=== PATIENT | male | born 1980 | race Caucasian/White ===

== ENCOUNTER 2016-08-14 01:05 | Emergency (ER) | payer BC, OTHER ==
[2016-08-14] MEDS ORDERED: VANCOMYCIN HCL INJ 1000 MG VIAL IV ONE (01:59)
[2016-08-14] MEDS ORDERED: CEFTRIAXONE INJ 1000 MG VIAL IV ONE (02:00)
[2016-08-14] MEDS ORDERED: LIDOCAINE 1%/EPINEPHRINE INJ 20 ML VIAL INJ ONE (02:00)
--- NOTE | 2016-08-14 02:04 | ER Document Report ---
ED General - General Chief Complaint: Abscess Stated Complaint: ABSCESS ON NECK/HARD TO BREATH Time Seen by Provider: 08/14/16 01:54 Notes: Patient is a 35-year-old male who presents with complaint of an abscess on the right side of his neck. Patient says this time is ingrown hair. He tried to squeeze it himself. They're saying is an abscess it gradually enlarged this morning. He is on antibiotic. No fevers. No vomiting. No difficulty breathing. Area is just below his mandible and the right side. TRAVEL OUTSIDE OF THE [place] IN LAST 30 DAYS: No - Related Data Allergies/Adverse Reactions: No Known Allergies Allergy (Unverified 08/14/16 01:47) Past Medical History - Social History Smoking Status: Unknown if Ever Smoked Frequency of alcohol use: None Drug Abuse: None Family History: Reviewed & Not Pertinent Patient has suicidal ideation: No Patient has homicidal ideation: No Renal/ Medical History: Denies: Hx Peritoneal Dialysis Review of Systems - Review of Systems Notes: My Normal Review Basic REVIEW OF SYSTEMS: CONSTITUTIONAL : Denies fever, chills, or sweats. Denies recent illness. EENT: Abscess just below the right mandible. RESPIRATORY: Denies cough, cold, or chest congestion. Denies shortness of breath, difficulty breathing, or wheezing. GASTROINTESTINAL: Denies abdominal pain. Denies nausea, vomiting, or diarrhea. Denies constipation. Last BM: MUSCULOSKELETAL: Denies neck or back pain or joint pain or swelling. SKIN: Denies rash or skin lesions. NEUROLOGICAL: Denies altered mental status or loss of consciousness. Denies headache. Denies weakness or paralysis or loss of use of either side. Denies problems with gait or speech. Denies sensory or motor loss. ALL OTHER SYSTEMS REVIEWED AND NEGATIVE. Physical Exam - Vital signs Vitals: Temp Pulse Resp BP Pulse Ox 99.4 F 102 H 18 138/92 H 98 08/14/16 01:45 08/14/16 01:45 08/14/16 01:45 08/14/16 01:45 08/14/16 01:45 - Notes Notes: General Appearance: Well nourished, alert, cooperative, no acute distress, no obvious discomfort. Well-appearing. Vitals: reviewed, See vital signs table. Head: Patient has a area of erythema fluctuance is approximately 2-3 cm in diameter that is just below the right mandible. This areas away from major vascular structures. It appears to be in the superficial subcutaneous tissues. Patient is able to fully open and close his mouth without difficulty. He has had no secretions well. No signs of impending airway compromise. Eyes: PERRL, EOMI, Conjuctiva clear Mouth: No decreasd moisture Throat: No tonsillar inflammation, No airway obstruction, No lymphadenopathy Neck: Supple, tenderness over area of abscess just underneath right mandible. Extremities: strength 5/5 in all extremities, good pulses in all extremities, no swelling or tenderness in the extremities, no edema. Skin: warm, dry, appropriate color, no rash Neuro: speech clear, oriented x 3, normal affect, responds appropriately to questions. Course - Vital Signs Vital signs: Temp Pulse Resp BP Pulse Ox 98.5 F 84 18 135/86 H 97 08/14/16 04:29 08/14/16 04:29 08/14/16 04:29 08/14/16 04:29 08/14/16 04:29 - Laboratory Result Diagrams: 08/14/16 02:28 08/14/16 02:50 Laboratory results interpreted by me: 08/14/16 08/14/16 02:28 02:50 WBC 15.4 H Absolute Neutrophils 11.3 H Absolute Monocytes 1.7 H Potassium 3.2 L Chloride 110 H Carbon Dioxide 21 L Calcium 7.8 L - Transfer of Care Notes: 08/14/16 05:51 Patient was given dose of vancomycin and Rocephin. He will be discharged home on Bactrim and clindamycin. He did tolerate incision and drainage of the neck abscess well. He feels much improved after incision and drainage. I informed him that because the location of the abscess must return to ER immediately if he has any fevers or any sensation of increasing swelling or redness over that area of his neck. A informed him he must return to ER in 2 days so that we can reevaluate him and pull the packing. Patient agrees with plan will be discharged home. Patient is speaking full sentences. He has no signs of airway compromise. Is able to fully open and close his jaw without difficulty. Dictation of this chart was performed using voice recognition software; therefore, there may be some unintended grammatical errors. Procedures - Incision and Drainage Neck Type: Simple Anesthetic type: 1% Lidocaine w/epi mL's of anesthetic: 2 Blade size: 11 I&D procedure: Betadine prep applied, Iodoform packing placed Incision Method: Incision made by scalpel Amount/type of drainage: purulent 3-4 mls Notes: 08/14/16 05:50 Superficial incision was made over the abscess. Immediately purulent drainage was expressed. 4 was flushed with saline. Iodoform gauze was sleep packed into the wound. This was covered with a Xeroform gauze followed by sterile gauze and tape. Discharge - Discharge Clinical Impression: Abscess Condition: Good Disposition: HOME, SELF-CARE Additional Instructions: ABSCESS: You have an abscess (boil). This a pus-forming infection, usually due to staph. Some boils may be left to drain on their own, but most require lancing. From the time the tender lump first appears, it may be three or four days before the abscess is ready to shashank. Local heat and rest help at this stage of treatment. An antibiotic may prevent spread of the infection. Once the abscess is opened, packing may be placed into it. This is done so pus is not sealed inside by premature closure of the cavity. The packing will be removed at your follow-up visit or you may be advised to remove it yourself at home. Sometimes this packing must be replaced a few times during healing. The wound will heal with surprisingly little scar. Depending on the size and location of an abscess, healing can take one to four weeks. You may shower and wash the area around the incision site two or three times a day. Antibiotics may be prescribed, but are usually not necessary after an abscess has been drained. If you develop fever, chills, worsening pain, or increasing swelling in the area, call the doctor or return immediately. POST INCISION AND DRAINAGE: You have had an incision made to allow drainage of an abscess. The incision must remain open so that pus and debris can drain from the wound. If the abscess cavity is large, packing is placed. This keeps the tissues from collapsing and trapping pus inside, while the body shrinks the cavity. The packing may need to be replaced every day or two. The physician will instruct you on the packing. Keep a bulky dressing over the area. Replace it if it becomes saturated with blood or pus. Do not disturb the packing (if present). You may shower and cleanse the area with gentle soap and warm water two or three times a day. Local warmth may be soothing, and may promote faster healing. Return if you develop high fever or chills, or if you note spreading redness, increasing swelling, or increasing tenderness. TRIMETHOPRIM-SULFA: You have been given a prescription for trimethoprim-sulfa (TMS, Septra, Bactrim). This is a combination antibiotic of the sulfa class, often used for urinary tract infections, middle ear infections, bronchitis, shigella intestinal infection, and Pneumocystis pneumonia. TMS is usually well-tolerated. Occasional side effects include nausea and decreased appetite. Septra is not recommended for infants less than two months of age. Do not take this medication if you have experienced severe side effects or allergy to sulfa medicine. You should stop this medicine at once and contact your physician if you develop any rash, joint pain, shortness of breath, bruising, or jaundice ( yellow color in the skin), or if you develop any other new or unusual symptoms. FOLLOW-UP CARE: Most simple abscesses will not require a follow up visit. If you had packing placed in the abscess, remove it as instructed by the physician. If you have been referred to a physician for follow-up care, call the physicians office for an appointment as you were instructed or within the next two days. If you experience worsening or a significant change in your symptoms, return to the Emergency Department at any time for re-evaluation. Please return to the ER immediately if you have any increase in neck swelling, difficulty breathing, difficulty swallowing, fever,s or feel unwell. Please return to the ER on Thursday so we can reexamine your neck and pull the packing. Prescriptions: Clindamycin HCl 300 mg PO ASDIR #56 capsule Sulfamethoxazole/Trimethoprim [Bactrim Ds Tablet] 1 each PO BID #14 tablet Forms: Return to Work
[2016-08-14] MEDS ORDERED: HYDROMORPHONE HCL INJ/PF 2 MG/ML AMPULE IV ONE (02:35)
[2016-08-14 02:36] LABS: ABSOLUTE BASOPHILS # (AUTO) 0.1 10^3/uL (0.0-0.2); ABSOLUTE EOSINOPHILS # (AUTO) 0.1 10^3/uL (0.0-0.6); ABSOLUTE LYMPHOCYTES (AUTO) 2.2 10^3/uL (0.5-4.7); ABSOLUTE MONOCYTES (AUTO) 1.7 10^3/uL (0.1-1.4); ABSOLUTE NEUT (AUTO) 11.3 10^3/uL (1.7-8.2); BASOPHILS % (AUTO) 0.9 % (0-2); EOSINOPHILS % (AUTO) 0.6 % (0-6); HEMATOCRIT 46.2 % (37.9-51.0); HEMOGLOBIN 16.2 g/dL (13.5-17.0); HGB HCT DIFFERENCE 2.4; LYMPHOCYTES % (AUTO) 14.1 % (13-45); MEAN CORPUSCULAR HEMOGLOBIN 30.3 pg (27.0-33.4); MEAN CORPUSCULAR VOLUME 87 fl (80-97); MONOCYTES % (AUTO) 10.9 % (3-13); RED BLOOD COUNT 5.35 10^6/uL (4.35-5.55); RED CELL DISTRIBUTION WIDTH 12.6 % (11.5-14.0); SEGMENTED NEUTROPHILS % (AUTO) 73.5 % (42-78); WHITE BLOOD COUNT 15.4 10^3/uL (4.0-10.5)
[2016-08-14 03:10] LABS: ANION GAP 9 (5-19); BLOOD UREA NITROGEN 14 mg/dL (7-20); CALCIUM 7.8 mg/dL (8.4-10.2); CARBON DIOXIDE 21 mmol/L (22-30); CHLORIDE 110 mmol/L (98-107); CREATININE RESULT 0.91 mg/dL (0.52-1.25); GLUCOSE 96 mg/dL (75-110); POTASSIUM 3.2 mmol/L (3.6-5.0); SODIUM 139.9 mmol/L (137-145)
[2016-08-14 04:31] VITALS: BP 135/86
== END 2016-08-14 04:29 | disposition home or self-care (01) ==
LOC: ER 01:05
PROC: 0H94XZZ Drainage of Neck Skin, External Approach (ICD-10-PCS; principal; 2016-08-14)
DX: L02.11 Cutaneous abscess of neck (principal); R06.00 Dyspnea, unspecified
CPT/HCPCS: 99283; 96375; 96365; 96367; 36415; 85025; 80048; 10060; J3490; J1170; J0696; J3370; A6266

== ENCOUNTER 2016-08-15 11:56 | Emergency (ER) | payer BC ==
[2016-08-15 12:11] VITALS: BP 126/86
--- NOTE | 2016-08-15 12:21 | ER Document Report ---
ED Wound - General Chief Complaint: Wound Recheck Stated Complaint: WOUND RECHECK Time Seen by Provider: 08/15/16 12:12 Mode of Arrival: Ambulatory Information source: Patient Notes: 35-year-old male presents to ED for an abscess recheck and packing removal from an abscess to the right side of his neck. TRAVEL OUTSIDE OF THE [place] IN LAST 30 DAYS: No - HPI Patient complains to provider of: Other - Abscess I&D Occurred: Other - a.m. early Onset/Duration: Gradual, Better Quality of pain: No pain Severity: None Pain Level: Denies Context: Other - Abscess I&D Skin Color: Other - Abscess I&D skin not quite starting to heal yet packing removed from abscess - Related Data Allergies/Adverse Reactions: No Known Allergies Allergy (Verified 08/15/16 12:08) Past Medical History - General Information source: Patient - Social History Smoking Status: Current Every Day Smoker Cigarette use (# per day): Yes - half pack a day Chew tobacco use (# tins/day): No Smoking Education Provided: Yes - less than 2 minutes Frequency of alcohol use: None Drug Abuse: None 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 Lives with: Spouse/Significant other Family History: Arthritis, COPD, CVA, DM, Hyperlipidemia, Hypertension, Malignancy - Past Medical History Cardiac Medical History: Reports: None Pulmonary Medical History: Reports: None EENT Medical History: Reports: None Neurological Medical History: Reports: None Endocrine Medical History: Reports: None Renal/ Medical History: Reports: None Malignancy Medical History: Reports None GI Medical History: Reports: None Musculoskeltal Medical History: Reports None Skin Medical History: Reports Hx Cellulitis Psychiatric Medical History: Reports: None Traumatic Medical History: Reports: None Infectious Medical History: Reports: None Past Surgical History: Reports: Other - I&D right neck - Immunizations Immunizations up to date: Yes Hx Diphtheria, Pertussis, Tetanus Vaccination: Yes Review of Systems - Review of Systems Constitutional: No symptoms reported EENT: No symptoms reported Cardiovascular: No symptoms reported Respiratory: No symptoms reported Gastrointestinal: No symptoms reported Genitourinary: No symptoms reported Male Genitourinary: No symptoms reported Musculoskeletal: No symptoms reported Skin: Other - Abscess right knee small amount of drainage Hematologic/Lymphatic: No symptoms reported Neurological/Psychological: No symptoms reported -: Yes All other systems reviewed and negative Physical Exam - Vital signs Vitals: Temp Pulse BP Pulse Ox 98.6 F 99 126/86 H 96 08/15/16 12:04 08/15/16 12:04 08/15/16 12:04 08/15/16 12:04 Interpretation: Normal - General General appearance: Appears well, Alert - HEENT Head: Normocephalic, Atraumatic Eyes: Normal Pupils: PERRL - Respiratory Respiratory status: No respiratory distress Chest status: Nontender Breath sounds: Normal Chest palpation: Normal - Cardiovascular Rhythm: Regular Heart sounds: Normal auscultation Murmur: No - Abdominal Inspection: Normal Distension: No distension Bowel sounds: Normal Tenderness: Nontender Organomegaly: No organomegaly - Back Back: Normal, Nontender - Extremities General upper extremity: Normal inspection, Nontender, Normal color, Normal ROM , Normal temperature General lower extremity: Normal inspection, Nontender, Normal color, Normal ROM , Normal temperature, Normal weight bearing. No: Lucinda's sign - Neurological Neuro grossly intact: Yes Cognition: Normal Orientation: AAOx4 Baker Coma Scale Eye Opening: Spontaneous Josef Coma Scale Verbal: Oriented Baker Coma Scale Motor: Obeys Commands Josef Coma Scale Total: 15 Speech: Normal Motor strength normal: LUE, RUE, LLE, RLE Sensory: Normal - Psychological Associated symptoms: Normal affect, Normal mood - Skin Skin Temperature: Warm Skin Moisture: Dry Skin Color: Normal Skin irregularity: Abscess - Recheck abscess Location of irregularity: Neck Irregularity with: Tenderness, Weeping Course - Re-evaluation Re-evalutation: 08/15/16 12:23 Packing removed from abscess abscess irrigated with saline and new dressing applied. Patient instructed to use Epsom salt soaks and to address 3-4 times a day. He is to continue antibiotic says noted. - Vital Signs Vital signs: Temp Pulse Resp BP Pulse Ox 98.6 F 99 126/86 H 96 08/15/16 12:04 08/15/16 12:04 08/15/16 12:04 08/15/16 12:04 Discharge - Discharge Clinical Impression: Abscess re-check Condition: Stable Disposition: HOME, SELF-CARE Instructions: Family Physicians / Practices Additional Instructions: CELLULITIS: You have an infection of your skin and underlying soft tissues called cellulitis. This is due to bacteria, which can enter through any break in the skin, or even through an irritated hair follicle. Untreated, cellulitis will usually worsen. Antibiotics are required. Usually, warm packs or warm soaks, and elevation of the infected area are recommended. You should start getting better within 24 to 36 hours. Most infections respond quickly to the right medication. Follow-up care is important, however, to check for abscess (boil) formation, unsuspected foreign body, or resistant infection. If you develop fever, chills, or if the area of infection is becoming rapidly more swollen or painful, call the doctor at once. Epsom Salt Soaks Soak the wound area in a container of warm epsom salt water. If you can't get the wound area into a bucket or hinojosa, use a folded towel soaked in the epsom salt solution and apply to the area. Use clean hot tap water (about the temperature of a very warm bath), mixing in about one (1) teaspoon for every pint of water. Two gallon --> 16 teaspoons Epsom Salts One gallon --> 8 teaspoons Epsom Salts Two quarts --> 4 teaspoons Epsom Salts One quart --> 2 teaspoons Epsom Salts Soak the wound for about 20 minutes while gently moving it around in the water. Repeat this four (4) times a day. Continue antibiotics as prescribed change dressing at least 3-4 times a day until healed. FOLLOW-UP CARE: If you have been referred to a physician for follow-up care, call the physician s office for an appointment as you were instructed or within the next two days. If you experience worsening or a significant change in your symptoms, notify the physician immediately or return to the Emergency Department at any time for re-evaluation. Forms: Smoking Cessation Education, Elevated Blood Pressure
== END 2016-08-15 12:32 | disposition home or self-care (01) ==
LOC: ER 11:56
DX: Z48.01 Encounter for change or removal of surgical wound dressing (principal); L02.11 Cutaneous abscess of neck; L02.415 Cutaneous abscess of right lower limb; F17.200 Nicotine dependence, unspecified, uncomplicated; Z71.6 Tobacco abuse counseling
CPT/HCPCS: 99282

== ENCOUNTER 2017-04-28 16:10 | Emergency (ER) | payer BC ==
[2017-04-28] MEDS ORDERED: KETOROLAC TROMETHAMINE 60 MG/2 ML SDV IM ONE ×2 (20:20→21:27)
--- NOTE | 2017-04-28 20:21 | ER Document Report ---
ED General - General Chief Complaint: Low Back Pain Stated Complaint: BACK PAIN Time Seen by Provider: 04/28/17 20:14 Notes: Patient is a 36-year-old male comes emergency department for chief complaint of flank pain, he states he has had it for the past 3 days, he states that he believes he saw some blood in his urine although he is not 100% sure. He has never had kidney stones before. He denies nausea or vomiting, fever or chills. He states he had mild abdominal pain earlier but this resolved. He takes no daily medications, denies any surgeries. TRAVEL OUTSIDE OF THE [place] IN LAST 30 DAYS: No - Related Data Allergies/Adverse Reactions: No Known Allergies Allergy (Verified 08/15/16 12:08) Past Medical History - General Information source: Patient - Social History Smoking Status: Never Smoker Drug Abuse: None Lives with: Family Family History: Arthritis, COPD, CVA, DM, Hyperlipidemia, Hypertension, Malignancy Renal/ Medical History: Denies: Hx Peritoneal Dialysis Skin Medical History: Reports Hx Cellulitis Past Surgical History: Reports: Other - I&D right neck - Immunizations Immunizations up to date: Yes Hx Diphtheria, Pertussis, Tetanus Vaccination: Yes Review of Systems - Review of Systems Constitutional: No symptoms reported EENT: No symptoms reported Cardiovascular: No symptoms reported Respiratory: No symptoms reported Gastrointestinal: See HPI Genitourinary: See HPI Male Genitourinary: No symptoms reported Musculoskeletal: See HPI Skin: No symptoms reported Hematologic/Lymphatic: No symptoms reported Neurological/Psychological: No symptoms reported Physical Exam - Vital signs Vitals: Temp Pulse Resp BP Pulse Ox 98.4 F 84 20 133/79 H 98 04/28/17 16:14 04/28/17 16:14 04/28/17 16:14 04/28/17 16:14 04/28/17 16:14 Interpretation: Normal - General General appearance: Appears well In distress: None - HEENT Head: Normocephalic, Atraumatic Eyes: Normal Conjunctiva: Normal Extraocular movements intact: Yes Eyelashes: Normal Pupils: PERRL Mouth/Lips: Normal Mucous membranes: Normal Pharynx: Normal Neck: Normal - Respiratory Respiratory status: No respiratory distress Chest status: Nontender Breath sounds: Normal. No: Decreased air movement, Wheezing Chest palpation: Normal - Cardiovascular Rhythm: Regular. No: Tachycardia Heart sounds: Normal auscultation, S1 appreciated, S2 appreciated Murmur: No - Abdominal Inspection: Normal Distension: No distension Bowel sounds: Normal Tenderness: Nontender. No: Tender, Marie's sign, Guarding - Back Back: Tender - Tenderness on both sides of the lumbar spine, no midline tenderness, no overt CVA tenderness, no saddle anesthesia, full range of motion , strength, normal distal neurovascular exam of all extremities - Extremities General upper extremity: Normal inspection, Nontender, Normal color, Normal ROM , Normal temperature General lower extremity: Normal inspection, Nontender, Normal color, Normal ROM , Normal temperature, Normal weight bearing - Neurological Neuro grossly intact: Yes Cognition: Normal Orientation: AAOx4 Harvey Coma Scale Eye Opening: Spontaneous Harvey Coma Scale Verbal: Oriented Josef Coma Scale Motor: Obeys Commands Josef Coma Scale Total: 15 Speech: Normal Motor strength normal: LUE, RUE, LLE, RLE Sensory: Normal - Psychological Associated symptoms: Normal affect, Normal mood - Skin Skin Temperature: Warm Skin Moisture: Dry Skin Color: Normal Course - Re-evaluation Re-evalutation: Patient is well-appearing. He does not present like a kidney stone. No CVA tenderness, appears to be paraspinal, probably from muscular strain. No fever, no dysuria. Urine does have some hematuria. Patient states the previous urine he had showed hematuria as well. Patient wants to have a CAT scan performed to evaluate for kidney stones or other abnormality. This was performed, shows no acute abnormality. Provide patient with a copy of his result. Spine is also unremarkable on imaging. Discussed with patient in detail. Because he has had multiple measurements of hematuria now, he will be referred to urology, discussed importance of this, discussed follow-up instructions, discussed return precautions. Patient states understanding and agreement. - Vital Signs Vital signs: Temp Pulse Resp BP Pulse Ox 98.4 F 70 16 128/72 H 99 04/28/17 16:14 04/28/17 20:15 04/28/17 20:15 04/28/17 20:15 04/28/17 20:15 - Laboratory Laboratory results interpreted by me: 04/28/17 20:28 Urine Blood MODERATE H Urine Urobilinogen 4.0 H Discharge - Discharge Clinical Impression: Low back pain Qualifiers: Chronicity: acute Back pain laterality: bilateral Sciatica presence: without sciatica Qualified Code(s): M54.5 - Low back pain Hematuria Qualifiers: Hematuria type: unspecified type Qualified Code(s): R31.9 - Hematuria, unspecified Condition: Stable Disposition: HOME, SELF-CARE Additional Instructions: Your CAT scan is normal including no kidney stones and normal-appearing back. Your flank pain appears to be musculoskeletal, apply heat to the area, take over -the-counter anti-inflammatory or topical anti-inflammatory, use prescribed muscle relaxer, avoid lifting/twisting if possible. Your urine does show some blood. Because you have had a previous urinalysis also showing blood, please follow-up with the urology referral below, call to set up a close follow-up appointment for additional evaluation and management. As we discussed we want to rule out any cells that are abnormal that could potentially lead to something like cancer. Return for any concerning symptoms including vomiting, fever of 100.4 or greater , severe pain, numbness, incontinence, or any other concerning symptoms. [facility] Urologist in [place], [place] Address: [address] [place] [address] [facility] Medical clinic in [place], [place] Address: [address] , [place] [id number] Prescriptions: Methocarbamol [Robaxin 750 mg Tablet] 750 mg PO Q6 #20 tablet
[2017-04-28 20:35] VITALS: BP 128/72
[2017-04-28 20:44] LABS: APPEARANCE,URINE SLIGHTLY-CLOUDY; BILIRUBIN,URINE NEGATIVE (NEGATIVE); COLOR,URINE YELLOW; GLUCOSE, URINE NEGATIVE (NEGATIVE); KETONES,URINE NEGATIVE (NEGATIVE); LEUKOCYTE ESTERASE,URINE NEGATIVE (NEGATIVE); NITRITE,URINE NEGATIVE (NEGATIVE); PROTEIN,URINE NEGATIVE (NEGATIVE); URINE SPECIFIC GRAVITY 1.015
--- NOTE | 2017-04-28 21:09 | RADIOLOGY REPORT (SQ) ---
EXAM DESCRIPTION: CT LTD RENAL STONE PROTOCOL ON COMPLETED DATE/TIME: 04/28/2017 8:55 pm REASON FOR STUDY: flank pain, ? hematuria COMPARISON: None. TECHNIQUE: CT scan of the abdomen and pelvis performed without intravenous or oral contrast. Images reviewed with lung, soft tissue, and bone windows. Reconstructed coronal and sagittal MPR images revi ewed. All images stored on PACS. All CT scanners at this facility use dose modulation, iterative reconstruction, and/or weight based d osing when appropriate to reduce radiation dose to as low as reasonably achievable (ALARA). [facility]: Dose Right [facility]: CareDose [facility]: Dose Right [facility]: Teradose 4D [facility]: Smart Stevie RADIATION DOSE: CT Rad equipment meets quality standard of care and radiation dose reduction techniq ues were employed. CTDIvol: 13.5 mGy. DLP: 708 mGy-cm.mGy. LIMITATIONS: None. FINDINGS: LOWER CHEST: No significant findings. No nodules or infiltrates. NON-CONTRASTED LIVER, SPLEEN, ADRENALS: Evaluation limited by lack of IV contrast. No identified sign ificant masses. PANCREAS: No masses. No peripancreatic inflammatory changes. GALLBLADDER: No identified stones by CT criteria. No inflammatory changes to suggest cholecystitis. RIGHT KIDNEY AND URETER: No suspicious masses. Assessment limited by lack of IV contrast. No signif icant calcifications. No hydronephrosis or hydroureter. LEFT KIDNEY AND URETER: No suspicious masses. Assessment limited by lack of IV contrast. No signifi cant calcifications. No hydronephrosis or hydroureter. AORTA AND RETROPERITONEUM: No aneurysm. No retroperitoneal masses or adenopathy. BOWEL AND PERITONEAL CAVITY: No obvious masses or inflammatory changes. No free fluid. APPENDIX: Normal. PELVIS, BLADDER, AND ABDOMINAL WALL:No abnormal masses. No free fluid. Bladder normal. BONES: No significant findings. OTHER: No other significant finding. IMPRESSION: NO SIGNIFICANT OR ACUTE PROCESS IN THE ABDOMEN OR PELVIS. COMMENT: Quality ID # [id number]: Final reports with documentation of one or more dose reduction techniques (e.g., Automated exposure control, adjustment of the mA and/or kV according to patient size, use of iterative reconstruction technique) TECHNICAL DOCUMENTATION: JOB ID: [id number]- All Rights Reserved
== END 2017-04-28 21:42 | disposition home or self-care (01) ==
LOC: ER 16:10
DX: M54.5 Low back pain (principal); R31.9 Hematuria, unspecified
CPT/HCPCS: 99284; 96372; 81001; 76380; J1885